=== PATIENT | female | born 1990 | race American Indian/Alaskan Native ===

== ENCOUNTER 2018-10-20 20:22 | Emergency (ER) | payer OTHER ==
[2018-10-20] MEDS ORDERED: IBUPROFEN PO ONE ×2 (23:49→23:53)
[2018-10-21] MEDS ORDERED: DELTASONE PO ONE (00:04)
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
[2018-10-21] MEDS ORDERED: DECADRON IM ONE (00:44)
[2018-10-21 00:59] VITALS: BP 124/69
== END 2018-10-21 01:00 | disposition home or self-care (01) ==
LOC: ED 20:22
DX: R21 Rash and other nonspecific skin eruption (principal); M54.5 Low back pain; G89.29 Other chronic pain
CPT/HCPCS: 96372; 99282; J1100; J7512

== ENCOUNTER 2018-12-27 19:08 | Emergency (ER) | payer OTHER ==
--- NOTE | 2018-12-27 23:27 | XRay Report ---
PROCEDURE: XR CHEST ROUTINE 2V TECHNIQUE: PA and lateral chest radiographs were obtained. HISTORY: cough and congestion COMPARISONS: None. FINDINGS: Heart: Normal. Mediastinum/Vessels: Normal. Lungs/Pleural space: Normal. Bony thorax: No acute osseous abnormality. IMPRESSION: Normal examination. This document is electronically signed by Garret Parekh MD., December 27 2018 11:25:42 PM ET
--- NOTE | 2018-12-28 01:08 | Emergency Department Report ---
- General Chief Complaint: Upper Respiratory Infection Stated Complaint: VOMIT/SORE THROAT/CHEST PAIN Time Seen by Provider: 12/28/18 01:03 Source: patient Mode of arrival: Ambulatory Limitations: No Limitations - History of Present Illness Initial Comments: 28-year-old -[place] female presents to the emergency room for cough, sore throat, sneezing headache nasal congestion. Patient reports is been going on for approximately 2 weeks. Patient has tried nothing [id number] to help her symptoms. Patient denies any fever. Patient reports no past medical history MD Complaint: cough, sore throat, rhinorrhea, nasal congestion -: week(s) (2) Consistency: intermittent Improves With: nothing Worsens With: nothing Associated Symptoms: rhinorrhea, nasal congestion, sore throat Treatments Prior to Arrival: none - Related Data Previous Rx's Medication Instructions Recorded Last Taken Type Cyclobenzaprine [Flexeril] 10 mg PO TID PRN #10 tablet 07/29/18 Unknown Rx HYDROcodone/APAP 5-325 [[place] 1 - 2 each PO Q6HR PRN #10 tablet 07/29/18 Unknown Rx 5/325] Ibuprofen [Motrin 800 MG tab] 800 mg PO Q8HR PRN #20 tablet 07/29/18 Unknown Rx Amoxicillin/Potassium Clav 1 each PO BID #20 tablet 09/14/18 Unknown Rx [Augmentin 875-125 Tablet] Fluconazole [Diflucan TAB] 100 mg PO QDAY #2 tablet 09/14/18 Unknown Rx Polymyxin B Sulf/Trimethoprim 2 drops OU BID #10 ml 09/14/18 Unknown Rx [Polytrim Eye Drops] hydrOXYzine HCL [Atarax] 25 mg PO Q6HR PRN #20 tablet 10/21/18 Unknown Rx Cyclobenzaprine [Flexeril] 10 mg PO TID PRN #12 tablet 10/24/18 Unknown Rx Ibuprofen [Motrin] 800 mg PO Q8HR PRN #12 tablet 10/24/18 Unknown Rx Cetirizine HCl [ZyrTEC] 10 mg PO QDAY #30 capsule 12/28/18 Unknown Rx Fluticasone Furoate [Flonase 1 spray NS QDAY #1 bottle 12/28/18 Unknown Rx Sensimist] Allergies Allergy/AdvReac Type Severity Reaction Status Date / Time No Known Allergies Allergy Verified 10/24/18 18:10 ED Review of Systems ROS: Stated complaint: VOMIT/SORE THROAT/CHEST PAIN Other details as noted in HPI ENT: throat pain (wheezing), congestion, other Respiratory: cough ED Past Medical Hx - Past Medical History Previous Medical History?: Yes Additional medical history: ENDOMETRIOSIS, 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, PNEUNOMIA - Surgical History Past Surgical History?: Yes Additional Surgical History: - Social History Smoking Status: Never Smoker Substance Use Type: None - Medications Home Medications: Home Medications Medication Instructions Recorded Confirmed Last Taken Type Cyclobenzaprine [Flexeril] 10 mg PO TID PRN #10 tablet 07/29/18 Unknown Rx HYDROcodone/APAP 5-325 [[place] 1 - 2 each PO Q6HR PRN #10 tablet 07/29/18 Unknown Rx 5/325] Ibuprofen [Motrin 800 MG tab] 800 mg PO Q8HR PRN #20 tablet 07/29/18 Unknown Rx Amoxicillin/Potassium Clav 1 each PO BID #20 tablet 09/14/18 Unknown Rx [Augmentin 875-125 Tablet] Fluconazole [Diflucan TAB] 100 mg PO QDAY #2 tablet 09/14/18 Unknown Rx Polymyxin B Sulf/Trimethoprim 2 drops OU BID #10 ml 09/14/18 Unknown Rx [Polytrim Eye Drops] hydrOXYzine HCL [Atarax] 25 mg PO Q6HR PRN #20 tablet 10/21/18 Unknown Rx Cyclobenzaprine [Flexeril] 10 mg PO TID PRN #12 tablet 10/24/18 Unknown Rx Ibuprofen [Motrin] 800 mg PO Q8HR PRN #12 tablet 10/24/18 Unknown Rx Cetirizine HCl [ZyrTEC] 10 mg PO QDAY #30 capsule 12/28/18 Unknown Rx Fluticasone Furoate [Flonase 1 spray NS QDAY #1 bottle 12/28/18 Unknown Rx Sensimist] ED Physical Exam - General Limitations: No Limitations General appearance: alert, in no apparent distress - Head Head exam: Present: atraumatic, normocephalic - Eye Eye exam: Present: normal appearance - ENT ENT exam: Present: mucous membranes moist - Expanded ENT Exam Expanded Throat exam: Positive: tonsillar erythema, tonsillomegaly ED Course Vital Signs 12/27/18 21:02 Temperature 97.9 F Pulse Rate 77 Respiratory 20 Rate Blood Pressure 126/78 O2 Sat by Pulse 100 Oximetry ED Medical Decision Making - Radiology Data Radiology results: report reviewed Patient: LARISA HOLT MR#: [id number] : 1990 Acct:[id number] Age/Sex: 28 / F ADM Date: 12/27/18 Loc: ED Attending Dr: Ordering Physician: MIRNA CHUNG MD Date of Service: 12/27/18 Procedure(s): XR chest routine 2V Accession Number(s): [id number] cc: ED MD JULIET Fluoro Time In Minutes: PROCEDURE: XR CHEST ROUTINE 2V TECHNIQUE: PA and lateral chest radiographs were obtained. HISTORY: cough and congestion COMPARISONS: None. FINDINGS: Heart: Normal. Mediastinum/Vessels: Normal. Lungs/Pleural space: Normal. Bony thorax: No acute osseous abnormality. IMPRESSION: Normal examination. This document is electronically signed by Daryl Parekh MD., December 27 2018 11:25:42 PM ET Transcribed By: [facility] Dictated By: DARYL PAREKH Electronically Authenticated By: DARYL PAREKH Signed Date/Time: 12/27/182326 DD/ 09 TD/TT: 12/27/182210 - Medical Decision Making Patient has been evaluated by this provider in fast track. Discussed patient her chest x-ray is negative As the patient is is most likely due to allergic rhinitis and that I recommended [id number] antihistamines and Flonase. Patient verbalized understanding Critical care attestation.: If time is entered above; I have spent that time in minutes in the direct care of this critically ill patient, excluding procedure time. ED Disposition Clinical Impression: Allergic rhinitis Disposition: DC-01 TO HOME OR SELFCARE Is pt being admited?: No Does the pt Need Aspirin: No Condition: Stable Instructions: Allergic Rhinitis (ED) Additional Instructions: Please take medications as prescribed. Follow up with the primary care provider if his symptoms persist or gets worse. Prescriptions: Fluticasone Furoate [Flonase Sensimist] 1 spray NS QDAY #1 bottle Cetirizine HCl [ZyrTEC] 10 mg PO QDAY #30 capsule Referrals: DEEDEE FALCON MD [Primary Care Provider] - 3-5 Days
[2018-12-28] MEDS ORDERED: BICILLIN L-A IM ONE (01:14)
[2018-12-28 01:39] VITALS: BP 115/90
== END 2018-12-28 01:39 | disposition home or self-care (01) ==
LOC: ED 19:08
DX: J30.9 Allergic rhinitis, unspecified (principal)
CPT/HCPCS: 71046; 87116; 87430; 96372; 99284; J0561

== ENCOUNTER 2019-05-26 15:07 | Emergency (ER) | payer OTHER ==
[2019-05-26 15:26] VITALS: BP 114/49
--- NOTE | 2019-05-26 15:26 | Event Note ---
ED Screening Note ED Screening Note: gen stomach pain no dc nausea/vomiting lmp 8-8 pmh endometriosis This initial assessment/diagnostic orders/clinical plan/treatment(s) is/are subject to change based on patients health status, clinical progression and re- assessment by fellow clinical providers in the ED. Further treatment and workup at subsequent clinical providers discretion. Patient/guardian urged not to elope from the ED as their condition may be serious if not clinically assessed and managed. Initial orders include: ua ro preg
[2019-05-26 15:58] LABS: Bacteria,Urine 1+ /HPF (Negative); Bilirubin,Urine NEG (Negative); Blood,Urine NEG (Negative); Color,Urine Yellow (Yellow); Mucus,Urine FEW /HPF; Protein,Urine <15 mg/dL mg/dL (Negative); Urobilinogen,Urine < 2.0 mg/dL (<2.0)
[2019-05-26 15:59] LABS: HCG Qualitative,Urine Negative (Negative)
[2019-05-26 16:25] LABS: Hemoglobin 13.3 gm/dl (10.1-14.3); Mean Corpuscular HGB Conc 33 % (30-34); Mean Corpuscular Volume 93 fl (79-97); Platelet Count 382 K/mm3 (140-440); Red Blood Count 4.32 M/mm3 (3.65-5.03); Red Cell Distribution Width 13.2 % (13.2-15.2)
[2019-05-26 16:33] LABS: Alanine Aminotransferase 21 units/L (7-56); Albumin 4.4 g/dL (3.9-5); BUN/Creatinine Ratio 12; Blood Urea Nitrogen 7 mg/dL (7-17); Calcium 9.3 mg/dL (8.4-10.2); Hemolysis Index 17
[2019-05-26] MEDS ORDERED: ZOFRAN IV STA (20:03)
[2019-05-26] MEDS ORDERED: MORPHINE IV STA (20:03)
[2019-05-26] MEDS ORDERED: NACL 0.9% 1000 ML 1,000 ML IV ONE (20:03)
--- NOTE | 2019-05-26 21:32 | Cat Scan Report ---
CT abdomen pelvis w con INDICATION: diffuse abdominal pain. TECHNIQUE: All CT scans at this location are performed using CT dose reduction for ALARA by means of automated e xposure control. COMPARISON: None FINDINGS: Lung bases are clear of acute disease. Low-attenuation lesion in the posterior dome of the liver, pro bably benign cyst. Gallbladder, spleen, pancreas, kidneys and adrenals are negative. Abdominal aorta is normal in size. Pelvis Appendicolith in the tip of the appendix but no evidence of inflammation. Small amount of free fluid in the cul-de-sac is probably physiologic. No appreciable inflammatory change. Urinary bladder appear s negative. No skeletal lesions. IMPRESSION: 1. No acute abnormalities. Signer Name: Suresh Mustafa MD Signed: 05/26/2019 9:28 PM Workstation Name: [employer]
--- NOTE | 2019-05-26 23:02 | Emergency Department Report ---
ED Abdominal Pain HPI - General Chief Complaint: Abdominal Pain Stated Complaint: STOMACH/LEG(S) PAIN/VOMITING Time Seen by Provider: 05/26/19 15:25 Source: patient Mode of arrival: Ambulatory Limitations: No Limitations - History of Present Illness MD Complaint: abdominal pain -: This afternoon Location: diffuse Radiation: none Migration to: no migration Severity: moderate Severity scale (0 -10): 5 Quality: cramping, aching, dull Consistency: constant Improves With: nothing Worsens With: nothing Associated Symptoms: nausea, vomiting. denies: constipation, dysuria, hematemes is, hematuria, anorexia, syncope - Related Data Previous Rx's Medication Instructions Recorded Last Taken Type Cyclobenzaprine [Flexeril] 10 mg PO TID PRN #10 tablet 07/29/18 Unknown Rx HYDROcodone/APAP 5-325 [[place] 1 - 2 each PO Q6HR PRN #10 tablet 07/29/18 Unknown Rx 5/325] Ibuprofen [Motrin 800 MG tab] 800 mg PO Q8HR PRN #20 tablet 07/29/18 Unknown Rx Amoxicillin/Potassium Clav 1 each PO BID #20 tablet 09/14/18 Unknown Rx [Augmentin 875-125 Tablet] Fluconazole [Diflucan TAB] 100 mg PO QDAY #2 tablet 09/14/18 Unknown Rx Polymyxin B Sulf/Trimethoprim 2 drops OU BID #10 ml 09/14/18 Unknown Rx [Polytrim Eye Drops] hydrOXYzine HCL [Atarax] 25 mg PO Q6HR PRN #20 tablet 10/21/18 Unknown Rx Cyclobenzaprine [Flexeril] 10 mg PO TID PRN #12 tablet 10/24/18 Unknown Rx Ibuprofen [Motrin] 800 mg PO Q8HR PRN #12 tablet 10/24/18 Unknown Rx Cetirizine HCl [ZyrTEC] 10 mg PO QDAY #30 capsule 12/28/18 Unknown Rx Fluticasone Furoate [Flonase 1 spray NS QDAY #1 bottle 12/28/18 Unknown Rx Sensimist] Hyoscyamine Subl [Levsin Sl 0.125 0.125 mg SL Q4HR PRN #20 tablet 05/26/19 Unknown Rx TAB] Allergies Allergy/AdvReac Type Severity Reaction Status Date / Time No Known Allergies Allergy Verified 10/24/18 18:10 ED Review of Systems ROS: Stated complaint: STOMACH/LEG(S) PAIN/VOMITING Other details as noted in HPI Comment: All other systems reviewed and negative ED Past Medical Hx - Past Medical History Previous Medical History?: Yes Additional medical history: ENDOMETRIOSIS, 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, PNEUNOMIA - Surgical History Additional Surgical History: - Social History Smoking Status: Never Smoker Substance Use Type: None - Medications Home Medications: Home Medications Medication Instructions Recorded Confirmed Last Taken Type Cyclobenzaprine [Flexeril] 10 mg PO TID PRN #10 tablet 07/29/18 Unknown Rx HYDROcodone/APAP 5-325 [[place] 1 - 2 each PO Q6HR PRN #10 tablet 07/29/18 Unknown Rx 5/325] Ibuprofen [Motrin 800 MG tab] 800 mg PO Q8HR PRN #20 tablet 07/29/18 Unknown Rx Amoxicillin/Potassium Clav 1 each PO BID #20 tablet 09/14/18 Unknown Rx [Augmentin 875-125 Tablet] Fluconazole [Diflucan TAB] 100 mg PO QDAY #2 tablet 09/14/18 Unknown Rx Polymyxin B Sulf/Trimethoprim 2 drops OU BID #10 ml 09/14/18 Unknown Rx [Polytrim Eye Drops] hydrOXYzine HCL [Atarax] 25 mg PO Q6HR PRN #20 tablet 10/21/18 Unknown Rx Cyclobenzaprine [Flexeril] 10 mg PO TID PRN #12 tablet 10/24/18 Unknown Rx Ibuprofen [Motrin] 800 mg PO Q8HR PRN #12 tablet 10/24/18 Unknown Rx Cetirizine HCl [ZyrTEC] 10 mg PO QDAY #30 capsule 12/28/18 Unknown Rx Fluticasone Furoate [Flonase 1 spray NS QDAY #1 bottle 12/28/18 Unknown Rx Sensimist] Hyoscyamine Subl [Levsin Sl 0.125 0.125 mg SL Q4HR PRN #20 tablet 05/26/19 Unknown Rx TAB] ED Physical Exam - General Limitations: No Limitations General appearance: alert, in no apparent distress - Head Head exam: Present: atraumatic, normocephalic - Eye Eye exam: Present: normal appearance - ENT ENT exam: Present: mucous membranes moist - Neck Neck exam: Present: normal inspection - Respiratory Respiratory exam: Present: normal lung sounds bilaterally. Absent: respiratory distress - Cardiovascular Cardiovascular Exam: Present: regular rate, normal rhythm. Absent: systolic murmur, diastolic murmur, rubs, gallop - GI/Abdominal GI/Abdominal exam: Present: hernia (no obvious hernias seen), other (abdominal examination is limited due to patient cooperation patient will not allow me to t ouch for the symptoms her abdomen.) - Extremities Exam Extremities exam: Present: normal inspection - Back Exam Back exam: Present: normal inspection. Absent: CVA tenderness (L) - Neurological Exam Neurological exam: Present: alert, oriented X3 - Psychiatric Psychiatric exam: Present: normal affect, normal mood - Skin Skin exam: Present: warm, dry, intact, normal color. Absent: rash ED Course Vital Signs 05/26/19 05/26/19 05/26/19 15:22 20:51 21:21 Temperature 98.5 F Pulse Rate 91 H Respiratory 18 16 16 Rate Blood Pressure 114/49 O2 Sat by Pulse 100 Oximetry ED Medical Decision Making - Lab Data Result diagrams: 05/26/19 16:06 05/26/19 16:06 Critical care attestation.: If time is entered above; I have spent that time in minutes in the direct care of this critically ill patient, excluding procedure time. ED Disposition Clinical Impression: Abdominal pain, Appendicolith Disposition: DC-01 TO HOME OR SELFCARE Is pt being admited?: No Does the pt Need Aspirin: No Condition: Stable Instructions: Abdominal Pain (ED) Prescriptions: Hyoscyamine Subl [Levsin Sl 0.125 TAB] 0.125 mg SL Q4HR PRN #20 tablet PRN Reason: Spasms Referrals: CORY LU MD [Primary Care Provider] - 3-5 Days Forms: AMA Form
== END 2019-05-27 02:30 | disposition home or self-care (01) ==
LOC: ED 15:07
DX: K38.1 Appendicular concretions (principal); Z79.899 Other long term (current) drug therapy; Z79.1 Long term (current) use of non-steroidal anti-inflammatories (NSAID); Z87.01 Personal history of pneumonia (recurrent)
CPT/HCPCS: 36415; 74177; 80053; 81001; 81025; 83690; 85027; 96361; 96374; 96375; 99284; J2270; J2405; J7030; Q9967

== ENCOUNTER 2019-11-17 01:36 | Emergency (ER) | payer OTHER ==
[2019-11-17] MEDS ORDERED: IPRATROPIUM/ALBUTEROL SULFATE 3 ML AMPUL.NEB IH ONE (01:47)
[2019-11-17] MEDS ORDERED: ALBUTEROL 2.5 MG/3 ML NEBU IH ONE ×2 (01:51→02:08)
[2019-11-17] MEDS ORDERED: MORPHINE 2 MG/1 ML INJ IV ONE (02:16)
--- NOTE | 2019-11-17 02:21 | Emergency Department Report ---
ED Shortness of Breath HPI - General Chief Complaint: Dyspnea/Respdistress Stated Complaint: LOWER BACK PAIN/SOB Time Seen by Provider: 11/17/19 02:08 Source: patient Mode of arrival: Ambulatory Limitations: No Limitations - History of Present Illness Initial Comments: 29-year-old female, currently 20 weeks , presents to ED with chest pain and shortness of breath. Patient reports onset of midsternal sharp chest pain and trouble breathing today. She reports 2 weeks of lower back pain. Denies fever, cough. Patient denies history of asthma. She reports some swelling to bilateral lower legs. Patient reports chest pain with deep breath, with cough, with laughing. MD Complaint: shortness of breath -: Last night Severity: moderate Quality: sharp Consistency: constant Improves With: nothing Worsens With: nothing Associated Symptoms: chest pain Treatments Prior to Arrival: none - Related Data Previous Rx's Medication Instructions Recorded Last Taken Type Cyclobenzaprine [Flexeril] 10 mg PO TID PRN #10 tablet 07/29/18 Unknown Rx HYDROcodone/APAP 5-325 [[place] 1 - 2 each PO Q6HR PRN #10 tablet 07/29/18 Unknown Rx 5/325] Ibuprofen [Motrin 800 MG tab] 800 mg PO Q8HR PRN #20 tablet 07/29/18 Unknown Rx Amoxicillin/Potassium Clav 1 each PO BID #20 tablet 09/14/18 Unknown Rx [Augmentin 875-125 Tablet] Fluconazole [Diflucan TAB] 100 mg PO QDAY #2 tablet 09/14/18 Unknown Rx Polymyxin B Sulf/Trimethoprim 2 drops OU BID #10 ml 09/14/18 Unknown Rx [Polytrim Eye Drops] hydrOXYzine HCL [Atarax] 25 mg PO Q6HR PRN #20 tablet 10/21/18 Unknown Rx Cyclobenzaprine [Flexeril] 10 mg PO TID PRN #12 tablet 10/24/18 Unknown Rx Ibuprofen [Motrin] 800 mg PO Q8HR PRN #12 tablet 10/24/18 Unknown Rx Cetirizine HCl [ZyrTEC] 10 mg PO QDAY #30 capsule 12/28/18 Unknown Rx Fluticasone Furoate [Flonase 1 spray NS QDAY #1 bottle 12/28/18 Unknown Rx Sensimist] Hyoscyamine Subl [Levsin Sl 0.125 0.125 mg SL Q4HR PRN #20 tablet 05/26/19 Unkno wn Rx TAB] Albuterol Sulfate [Proventil Hfa] 2 puff IH Q4HR PRN #1 hfa.aer.ad 11/17/19 Unknown Rx Allergies Allergy/AdvReac Type Severity Reaction Status Date / Time No Known Allergies Allergy Verified 10/24/18 18:10 ED Review of Systems ROS: Stated complaint: LOWER BACK PAIN/SOB Other details as noted in HPI Comment: All other systems reviewed and negative Constitutional: denies: chills, fever Respiratory: shortness of breath. 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, PNEUNOMIA - Surgical History Past Surgical History?: Yes Additional Surgical History: - Social History Smoking Status: Never Smoker Substance Use Type: None - Medications Home Medications: Home Medications Medication Instructions Recorded Confirmed Last Taken Type Cyclobenzaprine [Flexeril] 10 mg PO TID PRN #10 tablet 07/29/18 Unknown Rx HYDROcodone/APAP 5-325 [[place] 1 - 2 each PO Q6HR PRN #10 tablet 07/29/18 Unkn own Rx 5/325] Ibuprofen [Motrin 800 MG tab] 800 mg PO Q8HR PRN #20 tablet 07/29/18 Unknown Rx Amoxicillin/Potassium Clav 1 each PO BID #20 tablet 09/14/18 Unknown Rx [Augmentin 875-125 Tablet] Fluconazole [Diflucan TAB] 100 mg PO QDAY #2 tablet 09/14/18 Unknown Rx Polymyxin B Sulf/Trimethoprim 2 drops OU BID #10 ml 09/14/18 Unknown Rx [Polytrim Eye Drops] hydrOXYzine HCL [Atarax] 25 mg PO Q6HR PRN #20 tablet 10/21/18 Unknown Rx Cyclobenzaprine [Flexeril] 10 mg PO TID PRN #12 tablet 10/24/18 Unknown Rx Ibuprofen [Motrin] 800 mg PO Q8HR PRN #12 tablet 10/24/18 Unknown Rx Cetirizine HCl [ZyrTEC] 10 mg PO QDAY #30 capsule 12/28/18 Unknown Rx Fluticasone Furoate [Flonase 1 spray NS QDAY #1 bottle 12/28/18 Unknown Rx Sensimist] Hyoscyamine Subl [Levsin Sl 0.125 0.125 mg SL Q4HR PRN #20 tablet 05/26/19 Unknown Rx TAB] Albuterol Sulfate [Proventil Hfa] 2 puff IH Q4HR PRN #1 hfa.aer.ad 11/17/19 Unknown Rx ED Physical Exam - General Limitations: No Limitations General appearance: alert, anxious - Head Head exam: Present: atraumatic, normocephalic - Eye Eye exam: Present: normal appearance - ENT ENT exam: Present: mucous membranes moist - Neck Neck exam: Present: normal inspection - Respiratory Respiratory exam: Present: wheezes (occasional wheezing) - Cardiovascular Cardiovascular Exam: Present: regular rate, normal rhythm - GI/Abdominal GI/Abdominal exam: Present: soft. Absent: distended, tenderness - Extremities Exam Extremities exam: Present: normal inspection. Absent: calf tenderness - Back Exam Back exam: Present: paraspinal tenderness (lower lumbar) - Neurological Exam Neurological exam: Present: alert, oriented X3. Absent: motor sensory deficit - Psychiatric Psychiatric exam: Present: anxious - Skin Skin exam: Present: warm, dry, intact, normal color ED Course Vital Signs 11/17/19 11/17/19 11/17/19 01:43 01:57 04:51 Temperature 97.9 F Pulse Rate 97 H 91 H Pulse Rate [ 98 H Anterior Bilateral Throughout] Respiratory 18 16 Rate Respiratory 17 Rate [Anterior Bilateral Throughout] Blood Pressure 142/76 Blood Pressure 115/63 [Left] O2 Sat by Pulse 99 100 Oximetry ED Medical Decision Making - Lab Data Result diagrams: 11/17/19 03:06 11/17/19 03:06 - EKG Data -: EKG Interpreted by [place] EKG shows normal: sinus rhythm, axis, intervals, QRS complexes, ST-T waves Rate: normal - EKG Data Interpretation: no acute changes - Radiology Data Radiology results: report reviewed, image reviewed - Medical Decision Making - 20 wks - chest pain, SOB, cough, wheezing - also reports 2 week hx lower back pain, radiating into left leg - vitals normal - neb treatment given - EKG unremarkable - CTA Chest ordered due to pt's presentation, elevated D-dimer - CTA Chest negative for PE or any other abnormality - back pain could be due to sciatica; pt states unable to take tylenol b/c it causes her fibroids to hurt; advised warm compresses and gentle stretching - OB f/u advised, return precautions given - Differential Diagnosis pneumonia, PE, anxiety Critical care attestation.: If time is entered above; I have spent that time in minutes in the direct care of this critically ill patient, excluding procedure time. ED Disposition Clinical Impression: Acute chest pain, Dyspnea, Wheezing, Low back pain Disposition: TO HOME OR SELFCARE Is pt being admited?: No Condition: Stable Instructions: Chest Pain (ED), Dyspnea (ED) Prescriptions: Albuterol Sulfate [Proventil Hfa] 2 puff IH Q4HR PRN #1 hfa.aer.ad PRN Reason: Wheezing Referrals: ANALI BARBA MD [Primary Care Provider] - 3-5 Days Time of Disposition: 05:00
--- NOTE | 2019-11-17 03:21 | XRay Report ---
CHEST 1 VIEW INDICATION / CLINICAL INFORMATION: chest pain, sob. COMPARISON: 12/27/2018 FINDINGS: SUPPORT DEVICES: None. HEART / MEDIASTINUM: No significant abnormality. LUNGS / PLEURA: No significant pulmonary or pleural abnormality.. No pneumothorax. ADDITIONAL FINDINGS: No significant additional findings. IMPRESSION: 1. No acute findings. Signer Name: Diogo Ortiz MD Signed: 11/17/2019 3:17 AM Workstation Name: [id number]
[2019-11-17 03:25] LABS: Basophils % (Auto) 0.4 % (0.0-1.8); Eosinophils # (Auto) 0.4 K/mm3 (0.0-0.4); Eosinophils % (Auto) 3.7 % (0.0-4.3); Hematocrit 35.8 % (30.3-42.9); Hemoglobin 11.9 gm/dl (10.1-14.3); Lymphocytes # (Auto) 1.2 K/mm3 (1.2-5.4); Lymphocytes % (Auto) 12.2 % (13.4-35.0); Mean Corpuscular HGB Conc 33 % (30-34); Mean Corpuscular Volume 94 fl (79-97); Monocytes # (Auto) 0.7 K/mm3 (0.0-0.8); Monocytes % (Auto) 6.6 % (0.0-7.3); Platelet Count 302 K/mm3 (140-440); Red Blood Count 3.82 M/mm3 (3.65-5.03); Red Cell Distribution Width 14.2 % (13.2-15.2)
[2019-11-17 03:34] LABS: Bilirubin,Urine NEG (Negative); Blood,Urine NEG (Negative); Color,Urine Yellow (Yellow); Mucus,Urine FEW /HPF; Protein,Urine <15 mg/dL mg/dL (Negative)
[2019-11-17 03:41] LABS: BUN/Creatinine Ratio 12; Blood Urea Nitrogen 6 mg/dL (7-17); Calcium 8.8 mg/dL (8.4-10.2); Hemolysis Index 0
--- NOTE | 2019-11-17 04:51 | Cat Scan Report ---
CTA of the chest with 3D Reconstruction Indication: ,chest pain, sob Technique: TECHNIQUE: Axial CT images were obtained through the chest after injection of 100 cc of Omnipaque 350 IV contrast. 3 plane MIP reconstructions were produced. All CT scans at this location are performed using CT dose reduction for ALARA by means of automated exposure control. COMPARISON: None Automatic exposure control was utilized in an attempt to reduce radiation dose. Findings: Pulmonary arteries: The main pulmonary artery and right and left pulmonary artery branches fill satis factorily with contrast. No pulmonary embolus is seen. Lungs: The lungs are clear. Mediastinum: Heart size is normal. No adenopathy is seen. Aorta: Normal in diameter. No dissection seen within limits of this exam. Impression: No pulmonary embolus is seen Signer Name: Diogo Ortiz MD Signed: 11/17/2019 4:47 AM Workstation Name: [id number]
[2019-11-17 05:05] VITALS: BP 115/63
== END 2019-11-17 05:45 | disposition home or self-care (01) ==
LOC: ED 01:36
DX: O26.892 Other specified pregnancy related conditions, second trimester (principal); R07.89 Other chest pain; R06.00 Dyspnea, unspecified; R06.2 Wheezing; M54.5 Low back pain; Z98.890 Other specified postprocedural states; Z79.899 Other long term (current) drug therapy
CPT/HCPCS: 36415; 71045; 71275; 80048; 81001; 84484; 85025; 85379; 93005; 93010; 94640; 96374; 99284; J2270; Q9967; 94644

== ENCOUNTER 2019-11-25 17:54 | Outpatient (CLI) | payer OTHER ==
[2019-11-25] MEDS ORDERED: LACTATED RINGERS 500 ML IV ONE (19:33)
--- NOTE | 2019-11-25 22:28 | Ultrasound Report ---
ULTRASOUND OBSTETRIC INDICATION / CLINICAL INFORMATION: full ob u/sound.. Clinical Gestational Age (GA): 21 weeks 0 days TECHNIQUE: Transabdominal. COMPARISON: None available. FINDINGS: There is a single intrauterine . Biparietal Diameter = 4.6 cm = 20 weeks, 0 day(s). Head Circumference = 17.6 cm = 20 weeks, 1 day(s). Abdominal Circumference = 15.9 cm = 21 weeks, 0 day(s). Femur Length = 3.5 cm = 20 weeks, 6 day(s). Average Ultrasound Age (AUA) = 20 weeks, 4 day(s). Heart Rate: 157 beats per minute. Estimated Weight in grams (if calculated): 380 Estimated Weight Growth Percentile (if calculated): Position: cephalic. Cervix: closed. Length in cm (if measured): 3.8 Placenta: anterior and free of the os. Amniotic Fluid Volume: normal Amniotic Fluid Index (KARISHMA) in cm (if calculated): 5.5. Maternal Adnexa: No significant abnormality. No significant anatomic abnormality is identified. The fetus appears to be female. Multiple uterine fibroids are noted, as large as 8.6 cm in greatest dimension. IMPRESSION: 1. Single, living intrauterine with estimated sonographic age of 20 weeks, 4 day(s). 2. No significant sonographic abnormality. Signer Name: Andres Segovia MD Signed: 11/25/2019 10:23 PM Workstation Name: [id number]
[2019-11-25 23:08] LABS: Bilirubin,Urine NEG (Negative); Blood,Urine NEG (Negative); Color,Urine Yellow (Yellow); Mucus,Urine 1+ /HPF; Protein,Urine <15 mg/dL mg/dL (Negative)
[2019-11-25 23:45] VITALS: BP 120/72
== END 2019-11-26 00:15 | disposition home or self-care (01) ==
LOC: TRG 17:54
PROVIDERS: ATTEND Obstetrics & Gynecology
DX: O26.892 Other specified pregnancy related conditions, second trimester (principal); R10.9 Unspecified abdominal pain; O47.02 False labor before 37 completed weeks of gestation, second trimester; Z3A.21 21 weeks gestation of pregnancy
CPT/HCPCS: 76805; 81001; J7120

== ENCOUNTER 2019-11-26 02:15 | Outpatient (CLI) | payer OTHER ==
[2019-11-26] MEDS ORDERED: LACTATED RINGERS 1,000 ML ONE (03:55)
[2019-11-26] MEDS ORDERED: LACTATED RINGERS 1,000 ML IV SCH (04:00)
[2019-11-26] MEDS ORDERED: HYDROcodone/ACETAMINOPHEN 5-325 MG TAB PO ONE (04:15)
[2019-11-26] MEDS ORDERED: LACTATED RINGERS 500 ML IV ONE (05:00)
[2019-11-26 07:31] VITALS: BP 120/60
== END 2019-11-26 08:35 | disposition home or self-care (01) ==
LOC: TRG 02:15
PROVIDERS: ATTEND Obstetrics & Gynecology
DX: O26.892 Other specified pregnancy related conditions, second trimester (principal); R10.9 Unspecified abdominal pain; Z3A.21 21 weeks gestation of pregnancy
CPT/HCPCS: 96360; J7120